=== PATIENT | male | born 1960 | race Hispanic/Latino ===

== ENCOUNTER 2018-09-14 12:46 | Outpatient (CLI) | payer OTHER ==
--- NOTE | 2018-09-14 13:36 | RAD ---
TWO VIEWS LEFT KNEE: Comparison: None. History: Left knee pain. FINDINGS: Two views of the left knee shows no evidence of acute fracture or dislocation. No significant degener ative changes are seen. No soft tissue swelling is present. IMPRESSION: Unremarkable exam. POS: [facility]
== END 2018-09-14 12:47 | disposition home or self-care (01) ==
LOC: BICRAD 12:46
PROVIDERS: ATTEND Family Medicine
DX: M25.562 Pain in left knee (principal)